=== PATIENT | female | born 1970 | race Two or more races ===

== ENCOUNTER 2021-04-25 08:00 | Day surgery (SDC) | payer OTHER ==
[~2021-04-25] VITALS: Ht 167.6 cm; Wt 65.8 kg
[~2021-04-25 08:00] MED LIST: DORZOLAMIDE HCL10 ML OP; ISTALOL2.5 ML OP; SINGULAIR 10MG10 MG PO; SYMBICORT 16010.2 GM IH; VALSARTAN80 MG PO; ZYRTEC10 M3 PO
== END 2021-04-25 09:00 | disposition home or self-care (01) ==
LOC: CIR.AMB 08:00 → O/R 09:13 → SURH 09:13 → EDSTATUS 10:15 → SURH 10:15 → O/R 18:35
PROVIDERS: ATTEND Specialist
DX: D07.2 Carcinoma in situ of vagina (principal)

== ENCOUNTER 2022-05-06 08:21 | Outpatient (CLI) | payer OTHER | END 2022-05-06 08:33 | disposition home or self-care (01) | LOC: RAD 08:21 | PROVIDERS: ATTEND Surgery | DX: M54.50 Low back pain, unspecified (principal); M54.2 Cervicalgia; K59.09 Other constipation; R19.4 Change in bowel habit; R10.9 Unspecified abdominal pain; R14.0 Abdominal distension (gaseous); Z86.010 Personal history of colon polyps; Z80.0 Family history of malignant neoplasm of digestive organs; N80.9 Endometriosis, unspecified; Z87.11 Personal history of peptic ulcer disease; K30 Functional dyspepsia ==

== ENCOUNTER 2022-11-05 07:54 | Outpatient (CLI) | payer OTHER | END 2022-11-05 08:03 | disposition home or self-care (01) | LOC: MRI 07:54 | PROVIDERS: ATTEND Physical Medicine & Rehabilitation | DX: M25.572 Pain in left ankle and joints of left foot (principal); F40.240 Claustrophobia | CPT/HCPCS: 73721 ==

== ENCOUNTER 2022-11-30 14:08 | Emergency (ER) | payer OTHER ==
[~2022-11-30] VITALS: Ht 167.6 cm; Wt 70.3 kg
== END 2022-11-30 16:37 | disposition home or self-care (01) ==
LOC: ER 14:08
DX: L30.9 Dermatitis, unspecified (principal); Z88.2 Allergy status to sulfonamides; Z88.6 Allergy status to analgesic agent; Z88.8 Allergy status to other drugs, medicaments and biological substances

== ENCOUNTER 2023-10-23 13:06 | Outpatient (CLI) | payer OTHER ==
[~2023-10-23 13:06] MED LIST changes: +METHOCARBAMOL750 MG PO
== END 2023-10-23 13:16 | disposition home or self-care (01) ==
LOC: RAD 13:06
PROVIDERS: ATTEND Chiropractor
DX: M54.2 Cervicalgia (principal); M54.6 Pain in thoracic spine; M54.50 Low back pain, unspecified

== ENCOUNTER 2023-10-31 07:49 | Outpatient (CLI) | payer OTHER | END 2023-10-31 07:52 | disposition home or self-care (01) | LOC: TOM 07:49 | DX: R74.8 Abnormal levels of other serum enzymes (principal); M19.90 Unspecified osteoarthritis, unspecified site; R10.9 Unspecified abdominal pain ==

== ENCOUNTER 2024-04-17 19:37 | Emergency (ER) | payer OTHER ==
[~2024-04-17] VITALS: Ht 167.6 cm; Wt 72.6 kg
[2024-04-17] MEDS ORDERED: LEVALBUTEROL HCL 1.25 MG/3 ML SOLUTION IH SCH (21:00)
[2024-04-17] MEDS ORDERED: IPRATROPIUM BROMIDE 0.5 MG/2.5 ML AMPUL.NEB IH SCH (21:00)
[2024-04-17] MEDS ORDERED: LEVALBUTEROL HCL 1.25 MG/3 ML SOLUTION IH ONE (21:04)
[2024-04-17] MEDS ORDERED: IPRATROPIUM BROMIDE 0.5 MG/2.5 ML AMPUL.NEB IH ONE (21:05)
== END 2024-04-17 22:12 | disposition home or self-care (01) ==
LOC: ER 19:39
DX: J10.1 Influenza due to other identified influenza virus with other respiratory manifestations (principal); Z20.822 Contact with and (suspected) exposure to COVID-19; Z88.8 Allergy status to other drugs, medicaments and biological substances

== ENCOUNTER 2024-05-13 10:17 | Outpatient (CLI) | payer OTHER | END 2024-05-13 10:30 | disposition home or self-care (01) | LOC: RAD 10:17 | PROVIDERS: ATTEND Family Medicine | DX: R06.02 Shortness of breath (principal) ==

== ENCOUNTER 2024-10-19 12:14 | Outpatient (CLI) | payer OTHER | END 2024-10-19 12:15 | disposition home or self-care (01) | LOC: RAD 12:14 | PROVIDERS: ATTEND Physical Medicine & Rehabilitation | DX: M54.11 Radiculopathy, occipito-atlanto-axial region (principal) ==

== ENCOUNTER 2024-10-19 13:27 | Emergency (ER) | payer OTHER ==
[~2024-10-19] VITALS: Ht 162.6 cm; Wt 68.0 kg
[2024-10-19] MEDS ORDERED: DEXAMETHASONE SODIUM PHOSP/PF 10 MG/ML VIAL IJ ONE (14:00)
[2024-10-19] MEDS ORDERED: DEXAMETHASONE SODIUM PHOSPHATE 4 MG/ML VIAL ONE ×2 (14:27→15:00)
[2024-10-19] MEDS ORDERED: MORPHINE SULFATE 2 MG/ML SYRINGE IV ONE (15:00)
[2024-10-19 17:09] VITALS: BP 130/80; O2SAT 99
== END 2024-10-19 17:11 | disposition home or self-care (01) ==
LOC: ER 13:27
DX: M54.50 Low back pain, unspecified (principal); J45.909 Unspecified asthma, uncomplicated; Z88.2 Allergy status to sulfonamides; Z88.6 Allergy status to analgesic agent; Z88.8 Allergy status to other drugs, medicaments and biological substances

== ENCOUNTER 2024-10-26 12:25 | Emergency (ER) | payer OTHER ==
[~2024-10-26] VITALS: Ht 167.6 cm; Wt 74.8 kg
[2024-10-26 14:11] LABS: BASO % 0.9 % (0.1-1.2); EOS # 0.06 (0.04-0.54); EOS % 0.7 % (0.7-7.0); LYMPH # 2.99 (1.18-3.74); LYMPH % 34.7 % (19.3-53.1); MEAN PLATELET VOLUME 11.40 fl (9.4-12.4); MONO # 0.46 (0.24-0.82); MONO % 5.3 % (4.7-12.5); NEUT # 4.98 (1.56-6.13); NEUT % 57.9 % (34.0-71.1); RED CELL DISTRIBUTION WIDTH 12.2 % (11.6-14.4)
[2024-10-26 14:43] LABS: COVID-19 AG NEGATIVE (NEGATIVE)
== END 2024-10-26 19:08 | disposition home or self-care (01) ==
LOC: ER 12:25
PROVIDERS: General Practice
DX: R50.9 Fever, unspecified (principal); Z20.822 Contact with and (suspected) exposure to COVID-19; I10 Essential (primary) hypertension; Z88.6 Allergy status to analgesic agent

== ENCOUNTER 2024-10-27 12:56 | Outpatient (CLI) | payer OTHER | END 2024-10-27 12:58 | disposition home or self-care (01) | LOC: NUCLEAR 12:56 | PROVIDERS: ATTEND Chiropractor | DX: I82.401 Acute embolism and thrombosis of unspecified deep veins of right lower extremity (principal); R22.41 Localized swelling, mass and lump, right lower limb ==

== ENCOUNTER 2024-11-02 11:24 | Outpatient (CLI) | payer OTHER | END 2024-11-02 11:26 | disposition home or self-care (01) | LOC: RAD 11:24 | PROVIDERS: ATTEND Physical Medicine & Rehabilitation | DX: M17.11 Unilateral primary osteoarthritis, right knee (principal); M25.561 Pain in right knee ==

== ENCOUNTER 2024-11-03 05:12 | Emergency (ER) | payer OTHER ==
[~2024-11-03] VITALS: Ht 167.6 cm; Wt 74.8 kg
[2024-11-03 05:23] VITALS: BP 110/73; O2SAT 100
[2024-11-03] MEDS ORDERED: MORPHINE SULFATE 4 MG/ML VIAL IV STA (06:08)
== END 2024-11-03 09:12 | disposition home or self-care (01) ==
LOC: ER 05:12
DX: M54.50 Low back pain, unspecified (principal); Z88.8 Allergy status to other drugs, medicaments and biological substances

== ENCOUNTER → 2025-01-24 | Emergency (ER) | payer OTHER ==
[~2025-01-24] VITALS: Ht 167.6 cm; Wt 78.0 kg
[~2025-01-24] MED LIST changes: +0.9 % SODIUM CHLORIDE 1,000 ML IV ONE; +CHLOROTHIAZIDE PO; +CIPRO500 MG PO; +CIPROFLOXACIN IN 5 % DEXTROSE 200 ML IV ONE; +CYCLOBENZAPRINE HCL 5 MG TABLET PO ONE; +FAMOTIDINE/PF 20 MG in 0.9 % SODIUM CHLORIDE 8 ML IV PUSH ONE; +HORIZANT300 MG; +PEPCID AC20 MG PO
[2025-01-24 12:10] LABS: URINE APPEARANCE Turbid; URINE BILIRRUBIN Negative (NEGATIVE); URINE BLOOD Large; URINE COLOR Orange; URINE GLUCOSE Negative (NEGATIVE); URINE KETONE Negative (NEGATIVE); URINE LEUKOCYTE Moderate; URINE NITRATE Negative; URINE PROTEIN 30 (NEGATIVE); URINE UROBILINOGEN 1.0 E.U./dl
[2025-01-24 12:16] LABS: URINE BACTERIA 972.0 uL (0.0-1933); URINE CAST 1.61 uL (0.0-1.40); URINE EPITHELIAL CELLS 22.6 uL (0.0-38.8); URINE RBC 10481.2 uL (0.0-20.8); URINE WBC 2352.8 uL (0.0-23.2)
[2025-01-24 12:25] LABS: BASO % 0.9 % (0.1-1.2); EOS # 0.01 (0.04-0.54); EOS % 0.1 % (0.7-7.0); LYMPH # 2.45 (1.18-3.74); LYMPH % 17.1 % (19.3-53.1); MEAN PLATELET VOLUME 11.70 fl (9.4-12.4); MONO # 0.85 (0.24-0.82); MONO % 5.9 % (4.7-12.5); NEUT # 10.83 (1.56-6.13); NEUT % 75.6 % (34.0-71.1); RED CELL DISTRIBUTION WIDTH 11.9 % (11.6-14.4)
[2025-01-24 13:07] LABS: ALT/SGPT 43.0 U/L (12-78); AST/SGOT 22.0 U/L (15-37); BILIRUBIN TOTAL 0.51 mg/dL (0.3-1.2); BUN CREA RATIO 17.0 (7.0-25.0); CREATININE SERUM 0.72 mg/dL (0.55-1.02); GFR 85.06; GLOBULINA 3.2 G/DL (2.4-3.5); GLUCOSE FASTING 81.0 mg/dL (65-100); OSMOLALITY SERUM 278.0 MOSM/KG (275-295)
== END | disposition home or self-care (01) ==
LOC: ER 09:17
PROVIDERS: General Practice
DX: R31.9 Hematuria, unspecified (principal); N20.0 Calculus of kidney; Z88.8 Allergy status to other drugs, medicaments and biological substances; N39.0 Urinary tract infection, site not specified